=== PATIENT | female | born 1980 | race Caucasian/White ===

== ENCOUNTER 2017-02-01 13:43 | Emergency (ER) | payer MEDICAID ==
[~2017-02-01] VITALS: Ht 157.5 cm; Wt 82.0 kg
[2017-02-01 13:46] VITALS: BP 114/68
[2017-02-01] MEDS ORDERED: LIDOCAINE 1%, 20ML ONE (16:07)
== END 2017-02-01 16:53 | disposition home or self-care (01) ==
LOC: ED 16:41
DX: J45.41 Moderate persistent asthma with (acute) exacerbation (principal); L60.0 Ingrowing nail
CPT/HCPCS: 11750

== ENCOUNTER 2017-05-28 09:52 | Emergency (ER) | payer MEDICAID ==
[~2017-05-28] VITALS: Ht 157.5 cm; Wt 84.4 kg
[2017-05-28 10:19] VITALS: BP 132/71
[2017-05-28] MEDS ORDERED: KETOROLAC 30 MG/1 ML IM ONE (10:30)
[2017-05-28] MEDS ORDERED: KETOROLAC 30 MG/1 ML ONE (10:41)
== END 2017-05-28 11:31 | disposition home or self-care (01) ==
LOC: ED 10:28
DX: G89.29 Other chronic pain (principal); M72.2 Plantar fascial fibromatosis; M76.9 Unspecified enthesopathy, lower limb, excluding foot; J45.909 Unspecified asthma, uncomplicated
CPT/HCPCS: 96372; 99283; J1885

== ENCOUNTER 2018-03-19 12:40 | Emergency (ER) | payer MEDICAID ==
[~2018-03-19] VITALS: Ht 157.5 cm; Wt 91.5 kg
[2018-03-19 12:42] VITALS: BP 150/85
[2018-03-19] MEDS ORDERED: SODIUM CHLORIDE 0.9% 1,000ML IVBOLUS ONE (13:00)
[2018-03-19] MEDS ORDERED: SODIUM CHLORIDE 0.9% 1,000 ML IV ONE (13:00)
[2018-03-19] MEDS ORDERED: METOCLOPRAMIDE 5 MG/ML, 2ML IVPush ONE (13:00)
[2018-03-19] MEDS ORDERED: DIPHENHYDRAMINE 50 MG/ML, 1ML IVPush ONE (13:00)
[2018-03-19] MEDS ORDERED: DIPHENHYDRAMINE 50 MG/ML, 1ML ONE (13:07)
[2018-03-19] MEDS ORDERED: METOCLOPRAMIDE 5 MG/ML, 2ML ONE (13:07)
[2018-03-19 13:18] LABS: BASOPHILS # (AUTO) 0.03 x10^3/uL (0-0.1); BASOPHILS % (AUTO) 0 % (0-1); EOSINOPHILS # (AUTO) 0.18 x10^3/uL (0-0.4); EOSINOPHILS % (AUTO) 2 % (1-7); LYMPHOCYTES # (AUTO) 3.18 x10^3/uL (1-3.4); LYMPHOCYTES % (AUTO) 35 % (22-44); MD NO; MEAN CORPUSCULAR HEMOGLOBIN 29.4 pg (27.0-34.8); MEAN CORPUSCULAR HGB CONC 33.5 g/dL (32.4-35.8); MEAN CORPUSCULAR VOLUME 87.6 fL (80-100); MEAN PLATELET VOLUME 9.3 fL (7.4-10.4); MONOCYTES # (AUTO) 0.51 x10^3/uL (0.2-0.8); MONOCYTES % (AUTO) 6 % (2-9); NEUTROPHILS # (AUTO) 5.14 x10^3/uL (1.8-6.8); NEUTROPHILS % (AUTO) 57 % (42-75); PLATELET COUNT 237 x10^3/uL (130-400); RED BLOOD COUNT 5.21 x10^6/uL (3.82-5.3); RED CELL DISTRIBUTION WIDTH 13.9 % (9.6-15.2)
[2018-03-19 13:31] LABS: ALANINE AMINOTRANSFERASE 32 U/L (12-78); ALBUMIN 3.4 g/dL (3.4-5.0); ANION GAP 5 mmol/L (5-15); CALCIUM 8.6 mg/dL (8.5-10.1); CHLORIDE 107 mmol/L (98-107); CREATININE 0.82 mg/dL (0.55-1.02)
[2018-03-19 13:36] LABS: ALKALINE PHOSPHATASE 68 U/L (45-117); BILIRUBIN,TOTAL 0.3 mg/dL (0.2-1.0)
[2018-03-19 14:21] LABS: MICROSCOPIC NOT IND
[2018-03-19 14:25] LABS: CULTURE INDICATED? NO
== END 2018-03-19 14:49 | disposition home or self-care (01) ==
LOC: ED 14:43
DX: R51 Headache (principal); R10.13 Epigastric pain; R10.11 Right upper quadrant pain; J45.909 Unspecified asthma, uncomplicated
CPT/HCPCS: 36415; 70450; 76700; 80053; 81003; 83690; 84703; 85025; 96374; 96375; 99285; J1200; J2765; J7030

== ENCOUNTER 2020-02-12 16:16 | Emergency (ER) | payer BC, MEDICAID ==
[~2020-02-12] VITALS: Ht 157.5 cm; Wt 92.2 kg
[2020-02-12 16:19] VITALS: BP 106/75
--- NOTE | 2020-02-12 16:23 | NUR ---
PT AMBULATES WELL FROM TRIAGE TO ROOM.
--- NOTE | 2020-02-12 16:44 | NUR ---
CHRISTEN RAMON AT BEDSIDE FOR EVALUATION.
--- NOTE | 2020-02-12 17:35 | NUR ---
DISCHARGE INSTRUCTIONS REVIEWED
== END 2020-02-12 18:11 | disposition home or self-care (01) ==
LOC: ED 17:11
DX: S80.12XA Contusion of left lower leg, initial encounter (principal); J45.909 Unspecified asthma, uncomplicated; F17.200 Nicotine dependence, unspecified, uncomplicated; W01.0XXA Fall on same level from slipping, tripping and stumbling without subsequent striking against object, initial encounter; Y93.01 Activity, walking, marching and hiking; Y92.828 Other wilderness area as the place of occurrence of the external cause; Y99.8 Other external cause status
CPT/HCPCS: 99283

== ENCOUNTER 2020-05-11 17:07 | Emergency (ER) | payer BC ==
[~2020-05-11] VITALS: Ht 157.5 cm; Wt 92.8 kg
[2020-05-11 17:40] VITALS: BP 113/53
== END 2020-05-11 18:19 | disposition home or self-care (01) ==
LOC: ED 17:40
DX: K13.0 Diseases of lips (principal); R51 Headache; F17.210 Nicotine dependence, cigarettes, uncomplicated
CPT/HCPCS: 99281